=== PATIENT | male | born 1955 | race Caucasian/White ===

== ENCOUNTER 2018-04-24 21:48 | Emergency (ER) | payer OTHER ==
[~2018-04-24] VITALS: Wt 79.5 kg
--- NOTE | 2018-04-24 22:12 | ERD ---
ER Documentation Chief Complaint Chief Complaint bib pd /ra for medical clearance for using crystal meth, under custody HPI This is a 62-year-old male with a past medical history of substance abuse who is presenting in custody due to agitation and aggressive behavior after using crystal meth this evening. The patient reports using methamphetamine while with a female director of resource development in a hotel room. The female reportedly was connected to individuals that the patient thought could be after him. He called 911 three times, but when the police arrived, he was acting erratically. The patient was transferred here for further assessment. The patient admits to using the illicit drug. He is currently alert and oriented x3. He expresses remorse for acting erratically. He denies any suicidal or homicidal ideations. He denies a ny auditory or visual hallucinations. He endorses no issues with psychosis. The patient has no complaints at this time. The patient denies feeling sick recently. The patient denies fever or chills. The patient has had no headache or vision changes. The patient does not endorse neck or back pain. The patient denies lightheadedness or dizziness. The patient has had no chest pain or trouble breathing. The patient denies nausea or vomiting. The patient denies abdominal pain. The patient denies changes to bowel movements or urination. The patient has had no focal deficits. The patient has had no weakness or numbness or tingling to the face or extremities. ROS All systems reviewed and are negative except as per history of present illness. Allergies Allergies: Coded Allergies: No Known Allergy (Unverified , 04/24/18) PMhx/Soc Medical and Surgical Hx: pt denies Medical Hx, pt denies Surgical Hx History of Surgery: No Anesthesia Reaction: No Hx Neurological Disorder: No Hx Respiratory Disorders: No Hx Cardiac Disorders: No Hx Psychiatric Problems: Yes (drug abuse ) Hx Miscellaneous Medical Probl: No Hx Alcohol Use: Yes Hx Substance Use: Yes (Methamphetamine) Hx Tobacco Use: Yes FmHx Family History: No diabetes Physical Exam Vitals Vital Signs Date Temp Pulse Resp B/P (MAP) Pulse Ox O2 O2 Flow FiO2 Time Delivery Rate 04/24/18 98.3 82 19 130/81 100 Room Air 21:55 (97) 04/24/18 98.3 101 19 126/65 100 21:53 (85) Physical Exam Const: No apparent distress, well-developed, well-nourished Head: Normocephalic, Atraumatic Eyes: Normal Conjunctiva. Extraocular movements intact. Pupils equal, round and reactive to light ENT: Normal External Ears, Nose and Mouth. Neck: Full range of motion. No meningismus. Resp: Clear to auscultation bilaterally, No wheezes, rales or rhonchi Cardio: Regular rate and rhythm. No murmurs, rubs or gallops Abd: Soft, non tender, non distended. Normal bowel sounds Skin: No petechiae or rashes Back: No midline tenderness. No CVA tenderness Ext: No cyanosis, or edema Neur: Awake and alert, oriented 4. Cranial nerves intact. No facial droop. Normal strength, sensation and coordination. Psych: Normal Mood and Affect. Good insight. Appropriately remorseful. No auditory or visual hallucinations. No suicidal or homicidal ideations. Procedures/MDM MDM The patient's presentation warrants further investigation. Previous medical records, if available, were reviewed. The patient reports a transient episode of agitation and aggression related to methamphetamine abuse. The patient has no complaints at this time. The patient does not have any evidence of psychosis currently. The patient has no suicidal or homicidal ideations. He has no auditory visual hallucinations. I do not feel that the patient is a danger to himself or others. The patient did not require any physical or chemical restraint while under my care. The patient was medically cleared to be taken into police custody. TREATMENT/DISPOSITION The patient did not require any treatment in the emergency department. Upon reevaluation of the patient, symptoms have improved. No emergent diagnoses were identified. At this time, I feel that the patient stable for discharge. The patient was instructed to follow-up with a primary care physician in 1-3 days. The patient will be given strict precautions with which to return to the emergency department. Prescriptions: None The patient's blood pressure was elevated at greater than 120/80 while in the emergency department. The patient was otherwise stable with no evidence of hypertensive urgency or emergency. The patient does not require admission for blood pressure control. I have discussed with the patient the risks of hypertension. I have instructed the patient to return to the ER for any new or worsening symptoms including chest pain, shortness of breath, headache, blurred vision, confusion, nausea, vomiting or LOC. I have advised the patient to follow up with the primary care physician for outpatient monitoring and treatment for hypertension in 1-3 days. Disclaimer: Inadvertent spelling and grammatical errors are likely due to EHR/dictation software use and do not reflect on the overall quality of patient care. Note that the electronic time recorded on this note does not necessarily r eflect the actual time of the patient encounter. Departure Diagnosis: Primary Impression: Methamphetamine abuse Additional Impressions: Agitation Aggressive behavior Condition: KESHIA Christianson MD Apr 24, 2018 22:12
[2018-04-24 22:40] VITALS: BP 133/82; PULSE 89; RESP 19
== END 2018-04-24 22:42 ==
LOC: E/R 21:48
DX: F15.10 Other stimulant abuse, uncomplicated (principal); R46.89 Other symptoms and signs involving appearance and behavior; Z87.891 Personal history of nicotine dependence
CPT/HCPCS: 99282